=== PATIENT | female | born 1995 | race African-American/Black ===

== ENCOUNTER → 2018-10-20 08:14 | Outpatient (CLI) | payer OTHER ==
[2014-03-19 06:16] VITALS: BMI 19.4
[2018-10-20 09:16] LABS: CREATININE - SERUM 1.1 mg/dL (0.6-1.3)
== END | disposition home or self-care (01) ==
LOC: D.CT 08:00
PROVIDERS: ATTEND Nurse Practitioner
DX: R19.03 Right lower quadrant abdominal swelling, mass and lump (principal)